=== PATIENT | male | born 1975 | race Caucasian/White ===

== ENCOUNTER 2018-07-18 09:52 | Inpatient (IN) | payer SELFPAY ==
[2018-07-18] MEDS ORDERED: Ondansetron PF 4 MG/2 ML Vial ONE (10:26)
[2018-07-18] MEDS ORDERED: Fentanyl 100 MCG/2 ML VIAL ONE ×2 (10:47→12:32)
--- NOTE | 2018-07-18 12:34 | PDOC.FPRHP ---
- History of Present Illness Chief Complaint: choking History of Present Illness: Pt presents to ED complaining of chest pain since yesterday evening At around 1800 on 07/17 Mr. De Leon was enjoying steak when he took a bite that was too large for him to swallow, he reports feeling that it was stuck in his upper esophagus. He attempted to drink water to resolve the issue with no success. He went to lay down on the cough and try to sleep at approximately 0400 on 07/18 he awoke to choking on his saliva, he drank more water, felt searing pain and the globus sensation move further down his esophagus, he then vomited blood and afterward went to the ED. He reports he has been having progressive dysphagia for solids over the past 2-3 years without a formal evaluation. He denies any fever/chills, weight loss, previous bloody emesis. ED Course: fentanyl, zofran troponin, EKG, CT chest, CBC/CMP - History PMHx: GERD PSHx: none FHx: none Social: No tobacco, 36oz of beer/daily, no drugs - Review of Systems General: denies: fever/chills, weight/appetite/sleep changes Eyes: denies: vision changes ENT: denies: nasal congestion, rhinorrhea Respiratory: reports: cough. denies: congestion, shortness of breath Cardiovascular: denies: chest pain, palpitation, edema Gastrointestinal: reports: nausea, vomiting, abdominal pain. denies: diarrhea, constipation, GI bleeding Genitourinary: denies: incontinence Skin: denies: rashes Musculoskeletal: denies: pain, tenderness Neurological: denies: numbness, syncope - Vital signs BP: 136/78 HR: 95 RR: 18 Tmax: 98.6 Pox: 98% on RA Wt: 77.1kg - Physical Exam Constitutional: other (episodes of pain with inability to speak or breath intermittently) HEENT: normocephalic and atraumatic, grossly normal vision, grossly normal hearing, MMM Neck: supple, trachea midline Chest: no-tender to palpation, no lesions Heart: RRR, normal S1/S2 Lungs: CTAB, no respiratory distress Abdomen: bowel sounds present, other (mildly tender to palpation, mild guarding) Musculoskeletal: normal structure, normal tone Neurological: no focal deficit Skin: no rash/lesions, good turgor Heme/Lymphatic: no unusual bruising or bleeding Psychiatric: normal mood and affect FMR H&P: Results - Labs Result Diagrams: 07/18/18 19:07 FMR H&P: A/P - Problem List (1) Boerhaave syndrome Status: Acute Code(s): K22.3 - PERFORATION OF ESOPHAGUS (2) GERD (gastroesophageal reflux disease) Status: Acute Code(s): K21.9 - GASTRO-ESOPHAGEAL REFLUX DISEASE WITHOUT ESOPHAGITIS - Plan Boerhaave syndrome -Possibly resolved, concern for esophageal leak, sequale of forced esophageal rupture -CT w/ oral contrast negative for perforation -GI consulted, appreciate recs -NPO, LR 100ml/hr -IV protonix 40mg q12hr, zosyn, morphine prn -Monitor vitals q4hr, daily CBC, CMP -Consider EGD GERD -Possible history of, untreated -Continue PPI on DC -Esophageal narrowing noted, consider further workup outpatient Ppx: [facility] Code: full Disposition/LOS: Admit to surgical floor, monitor vitals and white blood cell count closely FMR H&P: Upper Level - Pertinent history 43M presents for 1 day of "choking on steak". He states he had 2-3 years of solid dysphagia with food. Yesterday, he had an episode after having steak. He tried to relieve it with fluid, but had also developed new dysphagia to liquid. Associated with pain underneath sternum, intermittent, non radiating, pressure like pain and bloody emesis. The pain has not resolved overnight so this morning , he called EMS. At [facility] ER, he was seen by GI. CT scan done here did not show perforation. GI is concern that there may be an unseen tear and would like to admit him for further evaluation and work up. So far, he has received 2 mg ativan, 1 mg glucagon, 50 mcg fentaenyl, 4 mg zofran, 2 mg morphine, 40 mg protonix and 2 mg dilaudid by EMS/ER. PMH: Rt "sciatic pain" Medication: 20 mg Prednisone for sciatic pain flare Social: 3 beers a day ROS: Gen: Deny fever GI: Endorse 1x bloody emesis, dysphagia with water/food, substernal pain after steak. MSK: Right leg sciatic pain - Pertinent findings Vitals: BP 136/78, Pulse 95, Resp 18, 98% O2 on RA, Wt 77kg Gen: Alert, grossly oriented, occasionally in distress secondary to pain HEENT: Eye conjunctiva white, moist mucosal membrane, midline trachea CV: RRR with no apparent m/g/r Resp: CTA bilaterally Abd: Soft, not tender to palpation, no guarding or rigidity. Mildly hypoactive bowel sound Ext: No edema Psych: appropriate interaction Nuero: No obvious focal deficits Trop: Less then 0.01 Hgb 13.3, WBC 9, Plt 161 - Plan Date/Time: 07/18/18 1230 I, [J Luis Ly], have evaluated this patient and agree with findings/plan as outlined by international project manager resident. Pertinent changes/additions are listed here. 1. Concern for Boerhaave syndrome and sequelae - GI recs for broad spectrum antibiotic and protonix due to concern for Boerhaave and sequelae. - CT scan at this time shows no active rupture based on preliminary read - CBC does not indicate significant bleed if any at this moment and patient with no known active bleed - Plan, admit for obs, start on q 6-8 hrs zosyn and 40 protonix BID, keep patient NPO - Appreciate GI recs and will follow up with it. 2. Rt sciatic nerve pain - Chronic issue prior to admission, not currently an active issue. - Will reevaluate and treat as needed. Addendum - Attending - Attending Attestation Date/Time: 07/19/181957 I personally evaluated the patient and discussed the management with Dr. Desai I agree with the History, Examination, Assessment and Plan documented above with any addition or exceptions noted below.Consider transfer to higher level of care.
[2018-07-18] MEDS ORDERED: Iopamidol 370 76% 50 ML VIAL FS ONE (12:48)
[2018-07-18 13:41] LABS: #Eosinphils 0.1 thou/uL (0.0-0.7); #Monocytes 0.5 thou/uL (0.11-0.59); #Neutrophils 7.4 thou/uL (1.40-6.50); %Eosinophils 0.9 % (0.0-10.0); %Lymphocytes 11.5 % (21.0-51.0); %Monocytes 5.5 % (0.0-10.0); %Neutrophils 82.2 % (42.0-75.0); Hemoglobin 13.3 g/dL (14.0-18.0); Mean Corpuscular Hemoglobin 29.7 pg (27.0-31.0); Mean Corpuscular Volume 87.2 fL (78.0-98.0); Mean Platelet Volume 7.3 fL (7.4-10.4); Platelet Count 161 thou/uL (130-400); RBC Distribution Width 11.6 % (11.5-14.5); Red Blood Cell (RBC) Count 4.48 mill/uL (4.70-6.10)
--- NOTE | 2018-07-18 14:00 | CT ---
CT THORAX NONCONTRAST: DATE: 07-18-18 TIME: 1:14 p.m. HISTORY: 43-year-old male with severe chest pain and epigastric pain after food bolus obstruction in the lower esophagus. COMPARISON: 07-18-18 7:[address] TECHNIQUE: Patient swallowed iodinated contrast. No IV contrast was given. FINDINGS: There is enteric contrast material in the nondistended lumen of the esophagus. The esophagus has circ umferential diffuse mural thickening throughout its length. There is no evidence of extravasation of the enteric contrast material into the mediastinum. There is a small fluid collection abutting the ri ght side of the esophagus at the lower chest. This has not changed. There is a small amount of fluid to the left of the esophagus at the same imaged level. There are mildly mediastinal lymph nodes in th e pretracheal region. No pneumomediastinum or pneumothorax. Interval development of streaky pulmonary densities in the bilateral lower lobes, left greater than right. At least some of this, including al l of it on the right, represents subsegmental atelectasis. The ones on the left are slightly more con fluent, and therefore follow up is recommended to rule out aspiration. Trachea and major bronchi are patent and clear. There is a tiny new left pleural effusion. IMPRESSION: 1. No extravasation of contrast material from the esophagus. 2. Diffuse mural thickening of the esophagus consistent with diffuse esophagitis. 3. Small amount of lower mediastinal fluid around the esophagus, unchanged from this morning, consist ent with mediastinitis. 4. Interval development of bilateral lower lobe pulmonary densities, left greater than right. Much of this represents subsegmental atelectasis, but follow up is recommended to rule out aspiration pneumo nitis in the left lower lobe. MAJO Carias POS: PRABHJOT
[2018-07-18] MEDS ORDERED: Piperacillin/Tazobactam 3.375 GM VIAL ONE (14:51)
[2018-07-18] MEDS ORDERED: Ondansetron PF 4 MG/2 ML Vial IVP PRN (15:04)
[2018-07-18] MEDS ORDERED: Lactated Ringer's 1,000 ML IV SCH (15:04)
[2018-07-18] MEDS ORDERED: Ondansetron ODT 4 MG TAB PO PRN (15:04)
--- NOTE | 2018-07-18 16:57 | CON ---
DATE OF CONSULTATION: 07/18/2018 GI CONSULTATION REASON FOR CONSULTATION: Severe chest pain after an episode of bolus obstruction. HISTORY OF PRESENT ILLNESS: Mr. De Leon is a pleasant 43-year-old gentleman, who notes that he has had intermittent problems of dysphagia for solids for about 6 or 7 years. From time to time, it will get stuck and he will either put his finger in his mouth and regurgitated up in the bathroom or drink water and force it down. He has not had any previous medical evaluation for this. Last night, he took steak around 8 o'clock, cut of little piece and tried to eat it and got stuck and felt like in the mid upper chest region and was fairly uncomfortable. He could not throw up. He awaited a few hours and tried to vomited up, but it would come up. He continued to have problems feeling secretions and ultimately he went to sleep, waking up periodically to spit up his secretions. He states about 4 in the morning, he decided to take a big drink of water and tried to force it down and it seemed to move from upper chest to the lower chest above the xiphoid and with that, he had severe excruciating pain and cried out. He also was brought to the emergency room in [place] at [facility], where he was evaluated there. He had a comprehensive metabolic profile 0450 hours in the morning, which was normal. White count of 9.18, hemoglobin of 15.1, and platelet count of 247. He had stable vital signs with no fever and normal blood pressure. Ultimately, he had a CAT scan that showed a thickened lower esophagus with fluid above it and maybe some air, but nothing below it. There are no overt signs of perforations or mediastinitis at that time. He was transferred from this facility, he is having quite a bit of pain here. He had again no evidence of fever, but had high pain requirements receiving Glucagon, Ativan, Protonix, Nitro-Bid, Dilaudid twice, morphine, and Zofran and then more recently fentanyl. When I saw him with medical student working with me, he was complaining of severe chest pain worse with deep breath. He was able to handle secretions and had any problems with that for several hours. He was able to drink some water here earlier. He denied any chills or rigors. PAST MEDICAL HISTORY: Negative. PAST SURGICAL HISTORY: Negative. ALLERGIES: NONE KNOWN. MEDICATIONS: None except he recently took a steroid taper from neurosurgeon. He was doing some work for. FAMILY HISTORY: Noncontributory. No history of colorectal cancer or liver disease. PHYSICAL EXAMINATION: VITAL SIGNS: Temperature 98.6, blood pressure 143/83, and pulse is 95. GENERAL: He is in bed. He is a little bit of distress, but his skin is warm and dry. His pain is controlled. HEENT: Oropharynx is moist. Conjunctivae and sclerae clear. NECK: Supple without any crepitus. LUNGS: Decreased breath sounds and excursion, does not take a little deep breath. Lungs are clear. HEART: Regular rate and rhythm. There is no crepitus in the chest. ABDOMEN: Mild tender in the epigastrium. There is no rebound or guarding. EXTREMITIES: No clubbing, cyanosis, or edema. SKIN: Warm and dry. LABORATORY DATA: Repeat labs here at 1331 hours; white count is 9, hemoglobin is 13.3, and platelet count is 161. Repeat CAT scan of the chest was ordered here as I was concerned about Boerhaave esophagus and mediastinitis, the amount of pain he is having with respiration and pain requirements here in the emergency room. I talked with Dr. Baltazar, reviewed those films with them. There is a contrast does go down the esophagus into the stomach. He had diffuse circumferential mural thickening and is almost the esophagus with no extravasation. There is small fluid collection abutting the right side of the esophagus and lower chest. It is unchanged from previous exam, smaller fluid in the left of the esophagus at the same image level, mild mediastinal lymph nodes in pretracheal region. No pneumomediastinum or pneumothorax. Some bilateral lower lobe pulmonary densities. Bronchi are clear. Radiologist felt he has a prior low-grade mediastinitis here. ASSESSMENT: 1. Episode of recurrent dysphagia for solids, likely related to esophageal stricture or eosinophilic esophagitis. 2. Episode of bolus obstruction with forceful vomiting and then severe chest pain suggestive of Boerhaave. There is no evidence of free esophageal perforation on CT scans both in [place] and here. The patient has had no fever and no leukocytosis. 3. The patient may have mild aspiration pneumonia. 4. I have reviewed the films with radiology personnel and talked with on-call thoracic surgery without overt leak at this point in time and without overt clinical signs of mediastinitis or expanding mediastinal fluid or effusions. There is no role for surgical intervention. If he needs surgical intervention, that is not available to the hospital after talking with Radiology, Surgery, and the [facility] Service admitting the patient. We decided to go and admit the patient here as there is not a compelling evidence for transfer him for a higher level of care without any overt signs of developing mediastinitis between observation at the outside emergency room beginning at 0420 hours this morning and here. RECOMMENDATIONS: 1. We would start on IV antibiotics empirically, cover a broad-spectrum probably supplying Zosyn to cover for anaerobes and Gram positive and negatives. 2. IV Protonix q.12 hours. 3. IV fluids. 4. Strict n.p.o. 5. Serial exams. If the patient has developed fever or sepsis, may need to be transferred to an outside facility for further evaluation if he would need thoracic surgery. Job ID: [id number]
[2018-07-18] MEDS ORDERED: Morphine 4 MG/ML VIAL ONE (16:59)
[2018-07-18] MEDS: Morphine 4 MG/ML VIAL SLOW IVP PRN ×3 (17:01→21:22)
[2018-07-18 18:05] VITALS: BMI 25.0
[2018-07-18] MEDS ORDERED: Fentanyl 100 MCG/2 ML VIAL SLOW IVP PRN (19:15)
[2018-07-18 19:18] LABS: #Lymphocytes 0.6 thou/uL (1.20-3.40); #Monocytes 0.3 thou/uL (0.11-0.59); #Neutrophils 4.8 thou/uL (1.40-6.50); %Basophils 0.1 % (0.0-1.0); %Eosinophils 0.6 % (0.0-10.0); %Lymphocytes 10.7 % (21.0-51.0); %Monocytes 5.2 % (0.0-10.0); %Neutrophils 83.5 % (42.0-75.0); Mean Corpuscular HGB CONC 33.7 g/dL (32.0-36.0); Mean Corpuscular Hemoglobin 29.5 pg (27.0-31.0); Mean Corpuscular Volume 87.5 fL (78.0-98.0); Mean Platelet Volume 7.6 fL (7.4-10.4); Platelet Count 142 thou/uL (130-400); RBC Distribution Width 11.7 % (11.5-14.5); Red Blood Cell (RBC) Count 4.39 mill/uL (4.70-6.10); White Blood Cell (WBC) Count 5.7 thou/uL (4.8-10.8)
--- NOTE | 2018-07-18 19:40 | PDOC.EVN ---
Event Note - Event Note Event Note: 43 yo male admitted with esophageal tear s/p forced po fluid in attempt clear esophageal obstruction after eating chicken fried steak . Patient with 3 years progressive dysphagia taking OTC PPI occasionally. Currently even mashed potatoes need to be followed with fluids for passage. Patient tried several hours to force food bolus down with po fluids before experiencing hematemasis. Patient presented to [facility] had CT chest and transferred to [facility] with repeat CT with oral contrast. Concern for esophageal rupture or Boerhaves and secondary mediastinitis. Patient seen with increased pain and splinting c/o morphine not effective and temp to 101 noted. Will increase antibiotic coverage and consult with CT surgery for further recommendation. No free air or esophageal penetration seen with CT with contrast .
--- NOTE | 2018-07-18 20:35 | PDOC.EVN ---
Event Note - Event Note Event Note: Visited with patient and family. Now febrile, tachycardic and remains in significant discomfort. Spoke with Dr. Zuleta who recommends transfer to facility that could manage suspected esophageal rupture and mediastinitis. Have initiated transfer to either [facility] in [place] or possibly [place]. Awaiting further approval. In the meantime, have expanded antibiotics to cover for mediastinitis + additional anaerobic coverage to include vanc + ceftazidime + zosyn. Tylenol OH PRN fever. Will continue pain control with fentanyl and morphine but if inadequate, will consult Anesthesiology for possible CONSULTANT TECHNOLOGY. Requiring NC because of inability to take deep inspirations 2/2 pain. Will plan for repeat CXR vs. CT in the morning or sooner if indicated. Discussed all of this with family who is understands and all questions answered at this time. BCx ordered.
[2018-07-18] MEDS ORDERED: Vancomycin HCl 1.25 GM in Sodium Chloride 0.9% 250 ML 250 ML IVPB SCH (21:00)
[2018-07-18] MEDS ORDERED: Piperacillin/Tazobactam 3.375 GM in Sodium Chloride 0.9% 100 ML IVPB SCH ×2 (21:00→23:59)
[2018-07-18] MEDS ORDERED: Pantoprazole 40 MG VIAL IVP SCH (21:00)
[2018-07-18] MEDS ORDERED: Cefepime 1 GM in Sodium Chloride 0.9% 100 ML IVPB SCH (22:00)
--- NOTE | 2018-07-18 22:15 | RAD ---
CHEST TWO VIEWS: INDICATIONS: Pain. FINDINGS: Bibasilar patchy densities are present, indicating pneumonia. There is granulomatous calcification o verlying the left lateral lower lung zone. No free air is seen beneath the hemidiaphragms. The card iac silhouette is borderline in size. There is vascular congestion in each perihilar region. IMPRESSION: 1. Evidence of bibasilar pneumonia/pneumonitis. Correlate clinically to exclude evidence of aspirat ion. 2. No free air is seen beneath the hemidiaphragms. 3. Vascular prominence. Correlate for fluid status. POS: [facility]
[2018-07-18 23:29] VITALS: BP 126/78; TEMP 102.8
[2018-07-18] MEDS ORDERED: Acetaminophen 650 MG Suppository PR PRN (23:44)
--- NOTE | 2018-07-19 01:09 | PDOC.EVN ---
Event Note - Event Note Event Note: Spoke with Dr. Burnett at [facility] in [place] regarding patient's condition. He agreed to accept transfer for mediastinits (and concern for possible small esophageal tear). Will plan for transfer tonight. Discussed plan with patient and his and they are agreeable. All questions answered at this time. He remains mildly tachycardic and febrile. VS otherwise stable. Will give Tylenol prior to transfer.
[2018-07-19] MEDS: Morphine 4 MG/ML VIAL SLOW IVP PRN (01:29)
--- NOTE | 2018-07-19 11:48 | DIS ---
DATE OF ADMISSION: 07/18/2018 DATE OF DISCHARGE: 07/19/2018 RESIDENT: Melissa Barnard MD. ADMITTING ATTENDING: Shahid Mason MD DISCHARGE ATTENDING: Shahid Mason MD CONSULTS: Dr. Zuleta with Gastroenterology, and Dr. Hutchison and Dr. Moreira with CT surgery were also notified of patient's condition. PROCEDURES: CT chest with and without contrast (07/18/2018): 1. No extravasation of contrast material from the esophagus. 2. Diffuse mural thickening of the esophagus consistent with diffuse esophagitis. 3. Small amount of lower mediastinal fluid around the esophagus, unchanged from this morning, consistent with mediastinitis. 4. Interval development of bilateral lower lobe pulmonary densities, left greater than right. Much of this represent subsegmental atelectasis, followup is recommended to rule out aspiration pneumonitis in the left lower lobe. Chest x-ray (07/18/2018): 1. Evidence of bibasilar pneumonia/pneumonitis, correlate clinically to exclude evidence of aspiration. No free air is seen beneath the hemidiaphragms. 2. Vascular prominence, correlate for fluid status. This x-ray was discussed with Dr. Sesay who also noted that there did not appear any evidence of pneumomediastinum. PRIMARY DIAGNOSES: 1. Mediastinitis. 2. Aspiration pneumonitis. 3. Gastroesophageal reflux disease. 4. Concern for small esophageal perforation. SECONDARY DIAGNOSES: 1. Gastroesophageal reflux disease. 2. Progressive dysphagia. DISCHARGE MEDICATIONS: 1. Tylenol 650 mg p.r. q.4 hours p.r.n. fever. 2. Duo nebs 3 mL nebulizer q.4 hours scheduled. 3. Cefepime 1 g q.8 hours. 4. Fentanyl 50 mcg IVP q.2 hours p.r.n. severe pain. 5. LR at 100 mL/h. 6. Morphine 4 mg q.4 p.r.n. severe pain. 7. Zofran 4 mg p.o. q.6 hours p.r.n. 8. Protonix 40 mg IV q.12 hours. 9. Zosyn 3.375 g q.6 hours. 10. Vancomycin 1.25 g q.12 hours. DISCONTINUED MEDICATIONS: None. HISTORY OF PRESENT ILLNESS/HOSPITAL COURSE: Mr. De Leon presented to the ED with chief complaint of chest pain. He had difficulty swallowing by a steak the evening prior to admission and throughout the evening continued to feel that it was stuck in his esophagus. He tried to pass a bolus with water with no improvement and was unable to sleep, prompting him to come to the ED early in the morning of July 18. While in the ED, a CT was performed, which showed evidence of the bolus had passed and no extravasation of contrast as noted above in the reading. However, the patient was continued to have severe pain and Dr. Zuleta of Gastroenterology was consulted. He remained concerned that the patient may have a small tear in his esophagus and recommended transfer of care to a facility that would be able to manage due to complication. This was also discussed with Dr. Hutchison, who recommended transfer as well. The patient also began to have a fever and therefore antibiotic coverage was broadened as well as blood cultures obtained. Dr. Burnett at [facility] in [place] agreed to accept transfer of the patient to his cardiothoracic service. At this time, we are preparing to transfer patient tonight. DISPOSITION: Guarded. DISCHARGE INSTRUCTIONS: Per Primary Team at receiving hospital. Job ID: [id number]
--- NOTE | 2018-07-20 10:14 | DIS ---
DATE OF ADMISSION: 07/18/2018 DATE OF DISCHARGE: 07/19/2018 RESIDENT: Fernandez Desai DO ADMITTING ATTENDING: Teresita Ashraf MD DISCHARGE ATTENDING: Dr. Mason. CONSULT: Dr. Zuleta, Gastroenterology. PROCEDURES: None. IMAGIN. Chest CT significant for no extravasation of contrast material from the esophagus. 2. Diffuse mural thickening of the esophagus consistent with diffuse esophagitis. 3. Small amount of lower mediastinal fluid around the esophagus unchanged from this morning, consistent with mediastinitis. 4. Interval development of bilateral lower lobe pulmonary densities, left greater than right. Much of this represents segmental atelectasis. Followup is recommended to rule out aspiration pneumonitis in the left lower lobe. PRIMARY DIAGNOSIS: Boerhaave syndrome. SECONDARY DIAGNOSIS: Gastroesophageal reflux disease. HISTORY OF PRESENT ILLNESS/HOSPITAL COURSE: Mr. De Leon is a 43-year-old male, who presents to the ED complaining of chest pain since yesterday evening at around 1800 hours. That evening, he was enjoying a steak, took a large bite and was unable to swallow. Following that, he reports globus sensation in his esophagus, attempting to drink large amount of water to gulp it down, and had tearing type sensation with subsequent hematemesis and malaise. At that time, they drove to the ER, presented to [facility] ED and was transferred to higher level of care at [facility] ED. He reports that for 2 to 3 years, he has had progressive dysphagia for solids. He denies any fever, chills, weight loss, or previous hematemesis. In the emergency department, he was given smooth muscle relaxer medications and pain medicine. Troponin, EKG, CBC and CMP were within normal limits. It was determined unlikely that he had a patent esophageal tear at that time and CT was negative for p.o. contrast leaking outside of the esophagus, so he was admitted to the surgical floor. Dr. Zuleta was consulted and agreed. Approximately, 6 hours post admission, he developed fever and tachycardia. Dr. Zuleta was contacted and recommended transfer to a higher level of care. [facility] in [place] was contacted, and Dr. Burnett , the accepting physician, agreed to accept the transfer for mediastinitis and concern for possible small esophageal tear. The patient was transported successfully. DISPOSITION: Guarded. TRANSFER INSTRUCTIONS: 1. Location: [facility] in [place]. 2. Diet: N.p.o. 3. Activity: As instructed. 4. Followup: Follow up with primary team attending, Dr. Burnett upon arrival. Job ID: [id number] MTDD
== END 2018-07-19 01:37 | disposition short-term general hospital (02) | DRG 368 ==
LOC: ERS 09:52 → OBSVTOIN 12:50 → ERHOLD 12:50 → T4-A 17:13 → IMCU/EMU 23:07
PROVIDERS: ADMIT Family Medicine; ATTEND Family Medicine
DX: K22.3 Perforation of esophagus (principal); J98.51 Mediastinitis; J69.0 Pneumonitis due to inhalation of food and vomit; K21.9 Gastro-esophageal reflux disease without esophagitis; R13.10 Dysphagia, unspecified
CPT/HCPCS: 36415; 71046; 71250; 84484; 85025; 87040; 93005; 96361; 96365; 96375; 96376; C9113; J0692; J2270; J2405; J2543; J3010; J3370; J7050; Q9967

== ENCOUNTER 2019-12-13 09:55 | Outpatient (CLI) | payer OTHER ==
--- NOTE | 2019-12-13 12:52 | CT ---
CT NECK WITH CONTRAST: DATE: 12/13/2019. HISTORY: A 44-year-old male with right tonsillar enlargement and right neck palpable lump. Dr. 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 Pierre's nurse, Loreto Osei LVN, by telephone, at 11:28 a.m., on 12/13/2019. COMPARISON: None. FINDINGS: The right faucial tonsil is enlarged. There are multiple significant enlarged right level II lymph nodes. One of the larger ones is approx imately 2.5 x 2.5 x 3 cm. None of these are necrotic. A couple of the right cervical lymph nodes patt rder on level III territory. There are multiple mildly and moderately enlarged lymph nodes in the subcarinal, pretracheal, and rig ht paratracheal mediastinum. There are at least mildly enlarged noncalcified bilateral hilar lymph n odes, incompletely imaged. Diffusely prominent interstitial markings at lung apices. No thyromegaly. Normal larynx. Parotid, carotid, retropharyngeal, submandibular, parts expediter, and posterior cervical, spaces, are unr emarkable. No destructive osseous lesion. IMPRESSION: 1. 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 2. Nonspecific mediastinal and hilar lymphadenopathy. This could represent sarcoidosis. Other, les s likely possibilities include lymphoma and metastatic lymphadenopathy. Clinical correlation is marcus mmended. CODE CR POS: [facility]
== END 2019-12-13 09:56 | disposition home or self-care (01) ==
LOC: SCSCT 09:55
PROVIDERS: ATTEND Specialist
DX: R22.1 Localized swelling, mass and lump, neck (principal); J35.8 Other chronic diseases of tonsils and adenoids; R59.0 Localized enlarged lymph nodes; C09.9 Malignant neoplasm of tonsil, unspecified
CPT/HCPCS: 70491

== ENCOUNTER 2019-12-15 07:31 | Outpatient (CLI) | payer SELFPAY, OTHER ==
[2019-12-16 13:15] LABS: SARS-CoV-2 MS2 Positive; SARS-CoV-2 N Gene Negative; SARS-CoV-2 S Gene Negative; SARS-CoV-2 orf1ab Negative
== END 2019-12-15 07:32 | disposition home or self-care (01) ==
LOC: LABBT 07:31
PROVIDERS: ATTEND Otolaryngology Plastic Surgery within the Head & Neck
DX: Z01.818 Encounter for other preprocedural examination (principal); Z11.59 Encounter for screening for other viral diseases; R22.1 Localized swelling, mass and lump, neck; J35.8 Other chronic diseases of tonsils and adenoids
CPT/HCPCS: 87635; 93005; 93010; U0003

== ENCOUNTER 2019-12-20 07:36 | Day surgery (SDC) | payer OTHER ==
[2019-12-19 10:05] VITALS: BMI 25.4
[2019-12-20] MEDS ORDERED: EPINEPHrine 1 MG/ML AMP ONE (08:47)
[2019-12-20] MEDS ORDERED: AFRIN NASAL MIST 15 ML BOT ONE (08:47)
[2019-12-20] MEDS ORDERED: Ferric Subsulfate (ASTRINGYN) 8 ML VIAL ONE (08:47)
[2019-12-20] MEDS ORDERED: Acetaminophen 500 MG TAB ONE (08:54)
[2019-12-20] MEDS ORDERED: Fentanyl 250 MCG/5 ML VIAL ONE (08:58)
[2019-12-20] MEDS ORDERED: Midazolam HCl 2 mg/2 ml Vial ONE (08:58)
[2019-12-20] MEDS ORDERED: Fentanyl 100 MCG/2 ML VIAL ONE ×2 (09:57→10:24)
[2019-12-20] MEDS ORDERED: PROPOFOL 200 MG/20 ML VIAL ONE (10:11)
[2019-12-20] MEDS ORDERED: Labetalol HCl 100 MG/20 ML VIAL ONE (10:11)
[2019-12-20] MEDS ORDERED: Ondansetron PF 4 MG/2 ML Vial ONE (10:11)
[2019-12-20] MEDS ORDERED: Dexamethasone 20 MG/5 ML VIAL ONE (10:11)
[2019-12-20] MEDS ORDERED: Lidocaine 1% PF 5 ML VIAL ONE (10:11)
[2019-12-20] MEDS ORDERED: Rocuronium Bromide 10 MG/ML (10ML VIAL) ONE (10:11)
--- NOTE | 2019-12-21 00:14 | OP ---
DATE OF PROCEDURE: 12/20/2019 PREOPERATIVE DIAGNOSES: 1. 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 3. Dysphagia. POSTOPERATIVE DIAGNOSES: 1. 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 3. Dysphagia. PROCEDURES PERFORMED: 1. Microsuspension direct laryngoscopy with biopsy. 2. Tonsillectomy and adenoidectomy. ESTIMATED BLOOD LOSS: 20 mL. COMPLICATIONS: None. ANESTHESIA: GETA. DESCRIPTION OF PROCEDURE: The patient was taken to operating room and placed supine on the table. General endotracheal anesthesia was obtained by the anesthesia staff. Tube was secured in the left lower lip. A tooth guard was placed into the oral cavity and a shoulder roll was placed. The patient's head was placed in gentle extension. Following this, the Dedo laryngoscope was introduced into the oral cavity and the mucosa of the oral cavity, oropharynx, hypopharynx, and laryngeal structures were all examined. There was a necrotic hard mass present within the right tonsil and did not extend onto the base of tongue or into the nasopharynx. The piriform sinuses vallecula, postcricoid mucosa, true vocal cords and subglottic areas were all noted to be free of lesions. A biopsy was taken of this area and sent for frozen section analysis. Following this, the curved Allis clamp was used to grasp the tonsils bilaterally and a subcapsular tonsillectomy was performed bilaterally. There was a very firm solid mass approximately 3 cm in diameter present within the right tonsil. Following this, the indirect laryngeal mirror was used to visualize the adenoid pad and the adenoid pad was then removed using the suction Bovie device. Following this, the nasal cavity was irrigated. Hemostasis was controlled. The patient tolerated the procedure well. Job ID: [id number]
== END 2019-12-20 11:43 | disposition home or self-care (01) ==
LOC: SDC 07:36
PROVIDERS: ATTEND Otolaryngology Plastic Surgery within the Head & Neck
PROC: 0CTPXZZ Resection of Tonsils, External Approach (ICD-10-PCS; principal; 2019-12-20)
PROC: 0CBM8ZX Excision of Pharynx, Via Natural or Artificial Opening Endoscopic, Diagnostic (ICD-10-PCS; principal; 2019-12-20)
PROC: 0CTQXZZ Resection of Adenoids, External Approach (ICD-10-PCS; principal; 2019-12-20)
DX: C09.9 Malignant neoplasm of tonsil, unspecified (principal); C76.0 Malignant neoplasm of head, face and neck
CPT/HCPCS: 88304; 88341; 88342; J0171; J1100; J2001; J2250; J2405; J2704; J3010

== ENCOUNTER 2020-01-02 09:48 | Outpatient (CLI) | payer OTHER ==
--- NOTE | 2020-01-02 13:05 | PET ---
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 There is bilateral relatively symmetric palatine tonsillar FDG avidity with SUV max on the right of 9 .9 SUV max on the left of 9. Right cervical level II and III adenopathy is FDG avid with SUV max 12.3. No supraclavicular adenopat hy. The nasopharyngeal and base of tongue adenoids are not significantly FDG avid. Symmetric bilateral intracranial uptake. The right paratracheal and pretracheal lymph nodes are not s ignificantly FDG avid. Calcified left suprahilar and AP window as well as great vessel lymph nodes are not FDG avid. No abnormal FDG avidity within the abdomen nor pelvis. Calcified granuloma within the lingula. Mild atelectasis in the lung bases. No suspicious pulmonary n odule. No dilated loops of large or small bowel. Aortoiliac contour is normal. Impression: 1. Symmetric bilateral palatine tonsillar radiotracer uptake and asymmetric right cervical level II/I II metastatic adenopathy. Given the recent neck CT findings of asymmetric right tonsillar enhancement and enlargement suggestive of cancer, left palatine tonsillar hyperplasia is suspected. B ilateral tonsillar cancer is felt less likely. Correlation with recent direct visualization findings is recommended. 2. Evidence of prior granulomatous disease with both calcified and noncalcified mediastinal lymph nod es. 3. No evidence metastatic disease distant of the cervical lymph nodes.
== END 2020-01-02 09:49 | disposition home or self-care (01) ==
LOC: PET 09:48
PROVIDERS: ATTEND Internal Medicine Hematology & Oncology
DX: C09.9 Malignant neoplasm of tonsil, unspecified (principal); R59.0 Localized enlarged lymph nodes; D71 Functional disorders of polymorphonuclear neutrophils
CPT/HCPCS: 78815; A9552

== ENCOUNTER 2020-03-12 07:21 | Outpatient (CLI) | payer OTHER ==
[2020-03-12 16:14] LABS: #Eosinphils 0.1 thou/uL (0.0-0.7); #Lymphocytes 0.3 thou/uL (1.20-3.40); #Monocytes 0.4 thou/uL (0.11-0.59); #Neutrophils 2.6 thou/uL (1.40-6.50); %Basophils 0.1 % (0.0-1.0); %Eosinophils 1.8 % (0.0-10.0); %Lymphocytes 8.2 % (21.0-51.0); %Monocytes 10.8 % (0.0-10.0); %Neutrophils 79.1 % (42.0-75.0); Hemoglobin 12.9 g/dL (14.0-18.0); Mean Corpuscular Hemoglobin 30.3 pg (27.0-31.0); Mean Corpuscular Volume 86.5 fL (78.0-98.0); Mean Platelet Volume 7.1 fL (7.4-10.4); Platelet Count 191 thou/uL (130-400); Red Blood Cell (RBC) Count 4.26 mill/uL (4.70-6.10); White Blood Cell (WBC) Count 3.3 thou/uL (4.8-10.8)
[2020-03-12 16:34] LABS: Anion Gap 16 mmol/L (10-20); BUN (Urea Nitrogen) 20 mg/dL (8.9-20.6); Calc. Creatinine Clearance 0 mL/min (70-130); Carbon Dioxide 25 mmol/L (22-29); Chloride 102 mmol/L (98-107); Estimated GFR-MDRD Greater than 90; Glucose 119 mg/dL (70-105); Potassium 4.1 mmol/L (3.5-5.1); Sodium 139 mmol/L (136-145)
[2020-03-13 11:58] LABS: SARS-CoV-2 MS2 Positive; SARS-CoV-2 N Gene Negative; SARS-CoV-2 S Gene Negative; SARS-CoV-2 by NAA Not Detected (NotDetected); SARS-CoV-2 orf1ab Negative
== END 2020-03-12 07:22 | disposition home or self-care (01) ==
LOC: LABBT 07:21
PROVIDERS: ATTEND Specialist
DX: Z01.812 Encounter for preprocedural laboratory examination (principal); Z20.828 Contact with and (suspected) exposure to other viral communicable diseases
CPT/HCPCS: 80048; 85025; 87635; U0003

== ENCOUNTER 2020-03-13 11:16 | Day surgery (SDC) | payer OTHER ==
[2020-03-12 15:35] VITALS: BMI 23.3
[2020-03-13] MEDS ORDERED: Ketorolac Tromethamine 30 MG/ML VIAL ONE (12:53)
[2020-03-13] MEDS ORDERED: Acetaminophen 500 MG TAB ONE (12:53)
[2020-03-13] MEDS ORDERED: Midazolam HCl 2 mg/2 ml Vial ONE (13:25)
[2020-03-13] MEDS ORDERED: Fentanyl 100 MCG/2 ML VIAL ONE (13:45)
[2020-03-13] MEDS ORDERED: PROPOFOL 40 ML ONE (13:56)
--- NOTE | 2020-03-14 07:04 | OP ---
DATE OF PROCEDURE: 03/13/2020 PREOPERATIVE DIAGNOSES: Tonsillar cancer, dysphagia. POSTOPERATIVE DIAGNOSES: Tonsillar cancer, dysphagia. PROCEDURE PERFORMED: Percutaneous endoscopic gastrostomy tube. ANESTHESIA: TIVA, local 1% Xylocaine with epinephrine and 0.5% Marcaine. DESCRIPTION OF PROCEDURE: The patient was taken to the operating room, where under intravenous sedation, endoscope placed per os under direct visualization. Using air insufflation, passed out to the esophagus, into the stomach. Good indentation of left medial subcostal. Area prepared with ChloraPrep. Local anesthetic was infiltrated in the skin and subcutaneous tissue. Stab incision was made. Trocar catheter introduced percutaneously into the gastric lumen, visualized endoscopically, grasping the wire introduced with snare, placed through the endoscope. The endoscope and wire brought out through the mouth. A feeding tube lubricated and connected to the wire and pulled back down through the mouth into the stomach, fixating against the abdominal wall with a fixation device. Antibiotic ointment, sterile dressing. Tube tailored to length and the feeding device applied. The patient tolerated the procedure well. Job ID: [id number]
== END 2020-03-13 15:35 | disposition home or self-care (01) ==
LOC: SDC 11:16
PROVIDERS: ATTEND Specialist
PROC: 0DH63UZ Insertion of Feeding Device into Stomach, Percutaneous Approach (ICD-10-PCS; principal; 2020-03-13)
DX: C09.9 Malignant neoplasm of tonsil, unspecified (principal)
CPT/HCPCS: J0690; J1885; J2250; J2704; J3010

== ENCOUNTER → 2020-05-14 | Day surgery (SDC) | payer OTHER ==
[~2020-05-14] MED LIST: Iopamidol 300 61% 50 ML VIAL FS ONE; Sterile Water 10 ML VIAL FS SCH
--- NOTE | 2020-05-14 16:52 | RAD ---
Tube check gastrostomy left upper quadrant HISTORY: Abdominal pain around gastrostomy catheter. FINDINGS: Including under fluoroscopic evaluation, a small amount of Gastrografin contrast was carefu lly instilled through the upper abdomen percutaneous gastrostomy catheter. Contrast immediately flows into the stomach, without leak. The anterior wall of the stomach is pulled and tented directly under the internal margin of the anterior abdominal wall. No contrast was seen along the skin surface. With the profile view, however, the normal printed appearance of stomach wall tented towards the kenyon rostomy was not as convincing. While favored to not be the case, it is possible that the catheter and balloon have been pulled super ficial to the anterior stomach wall. CT evaluation is pending.
--- NOTE | 2020-05-14 17:22 | CT ---
CT abdomen noncontrast HISTORY: PEG tube malfunction. FINDINGS: Enteric contrast is present from recent fluoroscopic procedure. The lung bases are clear. C ontrast that has been inserted through the peg is seen within the stomach and bowel. No extraluminal contrast is evident. The balloon of the catheter, however, is centered significantly sup erficial to the anterior wall of the stomach, with thickening around it suggesting that the balloon may be within the left anterior abdominal wall musculature, with the distal tip of the catheter exten ding into the stomach. No free air or free fluid within the abdomen. The pelvis was not imaged. The spleen measures up to 15.1 cm length. Prominent degenerative changes throughout the lumbar spine, including severe bilateral foraminal sten oses at the lowest 2 levels. Gas with the appearance of disc herniations are apparent at the L3-4 and L5-S1 levels, most likely compromising the left L3 and S1 nerve roots. IMPRESSION : CT findings are concerning for dislodgment of the PEG balloon from the stomach, possibly within the a nterior abdominal wall musculature. No extra-enteric leak. Findings were discussed with Dr. Byrd. Exchange of the catheter under fluoroscopy is planned. Moderate splenomegaly. Prominent degenerative changes of the lumbar spine. Foraminal stenoses and disc herniations. Clinical correlation regarding the lowest 3 bilateral dermatomes is required.
--- NOTE | 2020-05-15 08:45 | SPC ---
Gastrostomy tube change under fluoroscopic guidance HISTORY: Malposition of gastrostomy catheter. FINDINGS: Contrast material remained within the stomach and bowel from recent fluoroscopic procedure. A 0.035 Amplatz wire was carefully placed through the gastrostomy catheter to hold position. Procedure was performed in conjunction with Dr. Byrd. Dr. Byrd removed the old catheter over the wire. A new gastrostomy feeding catheter was inserted over the wire into the stomach. Balloon inflated with 20 cc water to secure position. Small amount of contrast was injected, showing good intraluminal position of the catheter. Patient tolerated the procedure well and was dismissed in good condition. IMPRESSION : Technically successful fluoroscopic guided gastrostomy catheter exchange.
== END ==
LOC: SDC/OP 15:03 → SPEC 15:04
PROVIDERS: ATTEND Surgery
PROC: 0D20XUZ Change Feeding Device in Upper Intestinal Tract, External Approach (ICD-10-PCS; principal; 2020-05-14)
DX: K94.23 Gastrostomy malfunction (principal)
CPT/HCPCS: 43763; 74150; 76000; Q9967

== ENCOUNTER 2020-08-01 07:38 | Outpatient (CLI) | payer OTHER | END 2020-08-01 07:39 | disposition home or self-care (01) | LOC: PET 07:38 | PROVIDERS: ATTEND Radiology Radiation Oncology | DX: C09.1 Malignant neoplasm of tonsillar pillar (anterior) (posterior) (principal); R59.0 Localized enlarged lymph nodes | CPT/HCPCS: 78815; A9552 ==

== ENCOUNTER 2022-10-22 12:30 | Outpatient (CLI) | payer OTHER | END 2022-10-22 12:31 | disposition home or self-care (01) | LOC: PET 12:30 | PROVIDERS: ATTEND Internal Medicine Hematology & Oncology | DX: C10.8 Malignant neoplasm of overlapping sites of oropharynx (principal); R91.8 Other nonspecific abnormal finding of lung field | CPT/HCPCS: 78815; A9552 ==

== ENCOUNTER 2023-01-13 09:56 | Outpatient (CLI) | payer OTHER | END 2023-01-13 09:57 | disposition home or self-care (01) | LOC: PET 09:56 | PROVIDERS: ATTEND Internal Medicine Hematology & Oncology | DX: C10.8 Malignant neoplasm of overlapping sites of oropharynx (principal); R91.8 Other nonspecific abnormal finding of lung field | CPT/HCPCS: 78815; A9552 ==

== ENCOUNTER 2023-04-01 12:30 | Outpatient (CLI) | payer OTHER | END 2023-04-01 12:31 | disposition home or self-care (01) | LOC: PET 12:30 | PROVIDERS: ATTEND Internal Medicine Hematology & Oncology | DX: C10.8 Malignant neoplasm of overlapping sites of oropharynx (principal); R91.1 Solitary pulmonary nodule | CPT/HCPCS: 78815; A9552 ==

== ENCOUNTER 2023-08-03 12:34 | Outpatient (CLI) | payer OTHER ==
[~2023-08-03 12:34] MED LIST changes: -Iopamidol 300 61% 50 ML VIAL FS ONE; +Iopamidol 370 76% 100 ML VIAL ONE; -Sterile Water 10 ML VIAL FS SCH
== END 2023-08-03 12:35 | disposition home or self-care (01) ==
LOC: CT 12:34
PROVIDERS: ATTEND Internal Medicine Hematology & Oncology
DX: C10.8 Malignant neoplasm of overlapping sites of oropharynx (principal); R04.2 Hemoptysis; R91.8 Other nonspecific abnormal finding of lung field
CPT/HCPCS: 71260

== ENCOUNTER 2023-08-22 21:33 | Inpatient (IN) | payer OTHER ==
[2023-08-22] MEDS ORDERED: Acetaminophen 500 MG TAB ONE (22:47)
[2023-08-22] MEDS ORDERED: Sodium Chloride 0.9% 100 ML ONE (22:48)
[2023-08-22] MEDS ORDERED: LevoFLOXacin 750 mg/D5W 150 ml Premix Bag ONE (22:48)
[2023-08-22] MEDS ORDERED: Cefepime 2 GM VIAL ONE (22:48)
[2023-08-22 22:49] LABS: ALT (SGPT) 25 U/L (8-55); AST (SGOT) 43 U/L (5-34); Albumin 3.5 g/dL (3.5-5.0); Alkaline Phosphatase 333 U/L (40-110); Anion Gap 19 mmol/L (10-20); BUN (Urea Nitrogen) 10 mg/dL (8.9-20.6); Bilirubin, Total 0.9 mg/dL (0.2-1.2); Calc. Creatinine Clearance 0 mL/min (70-130); Calcium 8.7 mg/dL (7.8-10.44); Carbon Dioxide 19 mmol/L (22-29); Chloride 97 mmol/L (98-107); Estimated GFR 107; Glucose 90 mg/dL (70-105); Lipase 8 U/L (8-78); Magnesium 1.7 mg/dL (1.6-2.6); Protein, Total 6.5 g/dL (6.0-8.3); Sodium 131 mmol/L (136-145)
[2023-08-22 22:56] LABS: Troponin I Less than 0.010 ng/mL (< 0.028)
[2023-08-22 22:59] LABS: Influenza A by NAA Not Detected (NotDetected); Influenza B by NAA Not Detected (NotDetected); SARS-CoV-2 NAA Rapid Test Not Detected (NotDetected)
[2023-08-22 23:37] LABS: #Eosinphils 0.3 thou/uL (0.0-0.7); #Monocytes 1.1 thou/uL (0.11-0.59); %Basophils 0.3 % (0.0-1.0); %Eosinophils 2.8 % (0.0-10.0); %Lymphocytes 2.3 % (21.0-51.0); %Monocytes 8.9 % (0.0-10.0); %Neutrophils 85.1 % (42.0-75.0); Hematocrit 22.3 % (42.0-52.0); Hemoglobin 6.9 g/dL (14.0-18.0); Mean Corpuscular HGB CONC 30.9 g/dL (32.0-36.0); Mean Corpuscular Hemoglobin 23.2 pg (27.0-31.0); Mean Corpuscular Volume 74.8 fl (78.0-98.0); Mean Platelet Volume 9.2 fL (7.4-10.4); Platelet Count 361 10x3/uL (130-400); Red Blood Cell (RBC) Count 2.98 mill/uL (4.70-6.10); White Blood Cell (WBC) Count 11.7 10x3/uL (4.8-10.8)
[2023-08-23] MEDS ORDERED: Acetaminophen 650 MG Suppository PR PRN (01:48)
[2023-08-23] MEDS ORDERED: Ondansetron PF 4 MG/2 ML Vial IVP PRN (01:48)
[2023-08-23] MEDS ORDERED: Ondansetron ODT 4 MG TAB PO PRN (01:48)
[2023-08-23] MEDS ORDERED: Ipratropium/Albuterol 3 ML NEB NEB PRN (02:07)
[2023-08-23 02:19] LABS: INR-International Normal Ratio 1.4; Prothrombin Time 16.7 sec (12.0-14.7)
[2023-08-23] MEDS ORDERED: Pantoprazole 40 MG VIAL ONE (02:19)
[2023-08-23 02:20] LABS: PTT 42.6 sec (22.9-36.1)
[2023-08-23 02:30] LABS: Bacteria/HPF None Seen HPF (None Seen); Bilirubin Negative (Negative); Blood, Urine Negative (Negative); CAUTI Indications for Culture Immunosuppressed; Clarity Clear (Clear); Glucose, Urine (Dipstick) Normal (Negative); Ketone, Urine Negative (Negative); Leukocyte Negative Leu/uL (Negative); Nitrite Negative (Negative); Protein, Urine (Dipstick) Negative (Neg-Trace); RBC/HPF None Seen HPF (0-3); Specific Gravity, Urine 1.007 (1.002-1.036); Squamous Epithelial None Seen HPF (0-3); Urobilinogen Normal mg/dL (Less than 2); WBC/HPF 0-3 HPF (0-3); pH, Urine 6.5 (5.0-9.0)
[2023-08-23 02:33] LABS: Urine Culture Reflex Yes Yes
[2023-08-23 02:55] LABS: Actual Bicarbonate (HCO3v) 18.8 mEq/L (22-28); Base Excess -4.4 mEq/L (-2.0 to +3.0); Calcium, Ionized (venous) 1.05 mmol/L (1.16-1.32); Chloride (VBG) 102 mmol/L (98-106); Hematocrit-VBG 23 % (42.0-52.0); Hemoglobin (Hb) 7.8 g/dL (13.1-17.2); Potassium (VBG) 3.38 mmol/L (3.70-5.30); Sodium 132 mmol/L (133-146); pH (venous) 7.453 (7.32-7.43)
[2023-08-23 04:23] LABS: Anion Gap 14 mmol/L (10-20); BUN (Urea Nitrogen) 8 mg/dL (8.9-20.6); Calc. Creatinine Clearance 0 mL/min (70-130); Calcium 8.2 mg/dL (7.8-10.44); Carbon Dioxide 18 mmol/L (22-29); Chloride 104 mmol/L (98-107); Estimated GFR 111; Glucose 89 mg/dL (70-105); Potassium 3.4 mmol/L (3.5-5.1); Sodium 133 mmol/L (136-145)
[2023-08-23 04:31] LABS: Troponin I Less than 0.010 ng/mL (< 0.028)
[2023-08-23] MEDS ORDERED: Morphine 4 MG/ML VIAL ONE (04:38)
[2023-08-23] MEDS ORDERED: Ibuprofen 800 MG TAB ONE (04:57)
[2023-08-23] MEDS ORDERED: Electrolyte Replacement Protocol 1 EACH FS PRN (04:59)
[2023-08-23 06:00] LABS: Troponin I Less than 0.010 ng/mL (< 0.028)
[2023-08-23] MEDS: Vancomycin (BATCH) 1.25 GM in Premix 1 BAG IVPB SCH (06:28)
[2023-08-23] MEDS ORDERED: Ipratropium Bromide 2.5 ml Neb ONE (06:56)
[2023-08-23] MEDS: Ipratropium Bromide 2.5 ml Neb NEB SCH (06:58)
[2023-08-23] MEDS: Cefepime 2 GM in Sodium Chloride 0.9% 100 ML IVPB SCH (08:18)
[2023-08-23] MEDS: Magnesium 2 GM/50 ML(in water) 2 GM in Premix 1 BAG IVPB SCH (08:19)
[2023-08-23] MEDS: Vancomycin (BATCH) 1.5 GM in Premix 1 BAG IVPB SCH (08:19)
[2023-08-23] MEDS: Pantoprazole 40 MG VIAL IVP SCH (08:19)
[2023-08-23] MEDS: Lactated Ringer's 1,000 ML IV SCH (08:20)
[2023-08-23] MEDS: Potassium Chloride 20 MEQ TAB PO SCH (08:20)
[2023-08-23] MEDS ORDERED: Vancomycin (BATCH) 1.5 GM in Premix 1 BAG IVPB SCH (09:00)
[2023-08-23] MEDS: Sodium Chloride 0.9% 1,000 ML IV SCH ×2 (11:38→11:52)
[2023-08-23 12:54] LABS: #Eosinphils 0.7 thou/uL (0.0-0.7); %Basophils 0.3 % (0.0-1.0); %Eosinophils 6.5 % (0.0-10.0); %Lymphocytes 2.7 % (21.0-51.0); %Monocytes 9.5 % (0.0-10.0); Hematocrit 28.3 % (42.0-52.0); Hemoglobin 8.8 g/dL (14.0-18.0); Mean Corpuscular HGB CONC 31.1 g/dL (32.0-36.0); Mean Corpuscular Hemoglobin 23.6 pg (27.0-31.0); Mean Corpuscular Volume 75.9 fl (78.0-98.0); Mean Platelet Volume 9.5 fL (7.4-10.4); Platelet Count 431 10x3/uL (130-400); RBC Distribution Width 18.3 % (11.5-14.5); Red Blood Cell (RBC) Count 3.73 mill/uL (4.70-6.10)
[2023-08-23 13:12] LABS: Legionella Urinary Ag Negative (Negative)
[2023-08-23 14:23] LABS: Hematocrit 28.3 % (42.0-52.0)
[2023-08-23 14:36] LABS: Strep pneumo Urine Ag NEGATIVE (NEGATIVE)
[2023-08-23] MEDS: guaiFENesin/Codeine 200 mg/20 mg 10 ml Cup PO PRN (17:20)
[2023-08-23] MEDS: HYDROcodone/Acetaminophen 5/325 mg Tablet PO PRN (17:25)
[2023-08-23] MEDS: Morphine 2 MG/ML VIAL SLOW IVP PRN (17:49)
[2023-08-23] MEDS: Enoxaparin 40 MG (0.4 mL) SYRINGE SC SCH (21:08)
[2023-08-23] MEDS: guaiFENesin/Codeine 200 mg/20 mg 10 ml Cup PO SCH (21:08)
[2023-08-23] MEDS: MELATONIN 10 MG PO SCH (21:49)
[2023-08-23] MEDS: GUMMY PO SCH (21:49)
[2023-08-24] MEDS: Acetaminophen 325 MG TAB PO PRN (01:02)
[2023-08-24 05:26] LABS: #Eosinphils 0.7 thou/uL (0.0-0.7); #Monocytes 1.1 thou/uL (0.11-0.59); %Basophils 0.4 % (0.0-1.0); %Eosinophils 6.3 % (0.0-10.0); %Lymphocytes 2.9 % (21.0-51.0); %Monocytes 9.4 % (0.0-10.0); %Neutrophils 80.5 % (42.0-75.0); Hematocrit 26.8 % (42.0-52.0); Hemoglobin 8.5 g/dL (14.0-18.0); Mean Corpuscular HGB CONC 31.7 g/dL (32.0-36.0); Mean Corpuscular Hemoglobin 23.9 pg (27.0-31.0); Mean Corpuscular Volume 75.5 fl (78.0-98.0); Mean Platelet Volume 9.6 fL (7.4-10.4); Platelet Count 426 10x3/uL (130-400); RBC Distribution Width 18.5 % (11.5-14.5); Red Blood Cell (RBC) Count 3.55 mill/uL (4.70-6.10); White Blood Cell (WBC) Count 11.2 10x3/uL (4.8-10.8)
[2023-08-24 05:53] LABS: Iron 14 ug/dL (65-175); Iron Binding Capacity, Total 184 mcg/dL (261-462)
[2023-08-24 05:55] LABS: ALT (SGPT) 14 U/L (8-55); AST (SGOT) 20 U/L (5-34); Alkaline Phosphatase 211 U/L (40-110); Anion Gap 15 mmol/L (10-20); BUN (Urea Nitrogen) 8 mg/dL (8.9-20.6); Bilirubin, Total 0.6 mg/dL (0.2-1.2); Calc. Creatinine Clearance 135 mL/min (70-130); Calcium 8.5 mg/dL (7.8-10.44); Carbon Dioxide 20 mmol/L (22-29); Chloride 100 mmol/L (98-107); Estimated GFR 111; Globulin 3.2 g/dL (2.4-3.5); Glucose 99 mg/dL (70-105); Iron 13 ug/dL (65-175); Iron Binding Capacity, Total 184 mcg/dL (261-462); Potassium 3.3 mmol/L (3.5-5.1); Protein, Total 6.2 g/dL (6.0-8.3); Sodium 132 mmol/L (136-145)
[2023-08-24] MEDS: FLU VACC QS2023-24(6MOS UP)/PF 60 MCG/0.5 ML SYRINGE IM ONE (07:38)
[2023-08-24] MEDS: Potassium Chloride 20 MEQ TAB PO SCH (07:39)
[2023-08-24 09:28] VITALS: BMI 23.3
[2023-08-24] MEDS ORDERED: Iopamidol-370 76% 500 ML MDV (1 ML CHARGE) ONE (10:24)
[2023-08-24] MEDS: Pregabalin 75 MG CAP PO SCH ×2 (10:25→20:44)
[2023-08-25 04:37] LABS: #Eosinphils 0.7 thou/uL (0.0-0.7); #Monocytes 0.9 thou/uL (0.11-0.59); #Neutrophils 7.1 thou/uL (1.40-6.50); %Basophils 0.3 % (0.0-1.0); %Eosinophils 7.6 % (0.0-10.0); %Lymphocytes 3.8 % (21.0-51.0); %Neutrophils 77.5 % (42.0-75.0); Hematocrit 25.1 % (42.0-52.0); Hemoglobin 8.1 g/dL (14.0-18.0); Mean Corpuscular HGB CONC 32.3 g/dL (32.0-36.0); Mean Corpuscular Hemoglobin 24.5 pg (27.0-31.0); Mean Corpuscular Volume 75.8 fl (78.0-98.0); Mean Platelet Volume 9.1 fL (7.4-10.4); Platelet Count 449 10x3/uL (130-400); RBC Distribution Width 18.6 % (11.5-14.5); Red Blood Cell (RBC) Count 3.31 mill/uL (4.70-6.10); White Blood Cell (WBC) Count 9.2 10x3/uL (4.8-10.8)
[2023-08-25 04:51] LABS: Anion Gap 12 mmol/L (10-20); BUN (Urea Nitrogen) 6 mg/dL (8.9-20.6); Calc. Creatinine Clearance 152 mL/min (70-130); Calcium 8.7 mg/dL (7.8-10.44); Carbon Dioxide 24 mmol/L (22-29); Chloride 101 mmol/L (98-107); Estimated GFR 115; Glucose 83 mg/dL (70-105); Potassium 3.5 mmol/L (3.5-5.1); Sodium 133 mmol/L (136-145)
[2023-08-25] MEDS: Potassium Chloride 20 MEQ TAB PO SCH ×2 (08:30→09:16)
[2023-08-25] MEDS: Potassium Chloride 20 MEQ in Premix 1 BAG IVPB SCH (09:07)
[2023-08-26 05:24] LABS: #Eosinphils 0.9 thou/uL (0.0-0.7); #Neutrophils 7.2 thou/uL (1.40-6.50); %Basophils 0.3 % (0.0-1.0); %Lymphocytes 3.5 % (21.0-51.0); %Monocytes 10.1 % (0.0-10.0); %Neutrophils 76.4 % (42.0-75.0); Hematocrit 27.8 % (42.0-52.0); Hemoglobin 8.8 g/dL (14.0-18.0); Mean Corpuscular HGB CONC 31.7 g/dL (32.0-36.0); Mean Corpuscular Hemoglobin 24.2 pg (27.0-31.0); Mean Corpuscular Volume 76.6 fl (78.0-98.0); Mean Platelet Volume 9.2 fL (7.4-10.4); Platelet Count 459 10x3/uL (130-400); RBC Distribution Width 18.9 % (11.5-14.5); Red Blood Cell (RBC) Count 3.63 mill/uL (4.70-6.10); White Blood Cell (WBC) Count 9.4 10x3/uL (4.8-10.8)
[2023-08-26 05:33] LABS: Anion Gap 15 mmol/L (10-20); BUN (Urea Nitrogen) 7 mg/dL (8.9-20.6); Calc. Creatinine Clearance 151 mL/min (70-130); Calcium 8.7 mg/dL (7.8-10.44); Carbon Dioxide 23 mmol/L (22-29); Chloride 100 mmol/L (98-107); Estimated GFR 115; Glucose 79 mg/dL (70-105); Potassium 3.8 mmol/L (3.5-5.1); Sodium 134 mmol/L (136-145)
[2023-08-27 04:50] LABS: #Eosinphils 0.8 thou/uL (0.0-0.7); #Monocytes 0.9 thou/uL (0.11-0.59); #Neutrophils 5.4 thou/uL (1.40-6.50); %Basophils 0.5 % (0.0-1.0); %Eosinophils 10.5 % (0.0-10.0); %Lymphocytes 4.5 % (21.0-51.0); %Monocytes 12.2 % (0.0-10.0); %Neutrophils 71.1 % (42.0-75.0); Hematocrit 27.7 % (42.0-52.0); Hemoglobin 8.7 g/dL (14.0-18.0); Mean Corpuscular HGB CONC 31.4 g/dL (32.0-36.0); Mean Corpuscular Hemoglobin 24.2 pg (27.0-31.0); Mean Corpuscular Volume 77.2 fl (78.0-98.0); Mean Platelet Volume 8.8 fL (7.4-10.4); Platelet Count 476 10x3/uL (130-400); RBC Distribution Width 18.9 % (11.5-14.5); Red Blood Cell (RBC) Count 3.59 mill/uL (4.70-6.10); White Blood Cell (WBC) Count 7.6 10x3/uL (4.8-10.8)
[2023-08-27 05:26] LABS: Anion Gap 15 mmol/L (10-20); BUN (Urea Nitrogen) 8 mg/dL (8.9-20.6); Calc. Creatinine Clearance 135 mL/min (70-130); Calcium 9.3 mg/dL (7.8-10.44); Carbon Dioxide 25 mmol/L (22-29); Chloride 100 mmol/L (98-107); Estimated GFR 111; Glucose 85 mg/dL (70-105); Potassium 4.1 mmol/L (3.5-5.1); Sodium 136 mmol/L (136-145)
[2023-08-27] MEDS: Levothyroxine 150 MCG TAB PO SCH (05:40)
[2023-08-29 05:14] LABS: #Basophils 0.1 thou/uL (0.0-0.2); #Eosinphils 0.9 thou/uL (0.0-0.7); #Monocytes 0.8 thou/uL (0.11-0.59); #Neutrophils 6.1 thou/uL (1.40-6.50); %Basophils 0.6 % (0.0-1.0); %Eosinophils 10.8 % (0.0-10.0); %Lymphocytes 5.5 % (21.0-51.0); %Monocytes 9.3 % (0.0-10.0); %Neutrophils 72.7 % (42.0-75.0); Hemoglobin 9.2 g/dL (14.0-18.0); Mean Corpuscular HGB CONC 31.7 g/dL (32.0-36.0); Mean Corpuscular Hemoglobin 24.3 pg (27.0-31.0); Mean Corpuscular Volume 76.7 fl (78.0-98.0); Mean Platelet Volume 8.9 fL (7.4-10.4); Platelet Count 480 10x3/uL (130-400); RBC Distribution Width 18.8 % (11.5-14.5); Red Blood Cell (RBC) Count 3.78 mill/uL (4.70-6.10); White Blood Cell (WBC) Count 8.3 10x3/uL (4.8-10.8)
[2023-08-29 05:32] LABS: Anion Gap 15 mmol/L (10-20); BUN (Urea Nitrogen) 11 mg/dL (8.9-20.6); Calc. Creatinine Clearance 131 mL/min (70-130); Calcium 9.3 mg/dL (7.8-10.44); Carbon Dioxide 23 mmol/L (22-29); Chloride 100 mmol/L (98-107); Estimated GFR 110; Glucose 90 mg/dL (70-105); Sodium 134 mmol/L (136-145)
[2023-08-29 12:44] VITALS: BP 111/77; TEMP 98.6
== END 2023-08-29 12:46 | disposition home or self-care (01) | DRG 871 ==
LOC: ERS 21:33 → ERHOLD 08-23 01:48 → CCU 08-23 08:00 → T4-A 08-26 13:18
PROVIDERS: ADMIT Student in an Organized Health Care Education/Training Program; ATTEND Internal Medicine
PROC: 30233N1 Transfusion of Nonautologous Red Blood Cells into Peripheral Vein, Percutaneous Approach (ICD-10-PCS; principal; 2023-08-23)
PROC: 3E03329 Introduction of Other Anti-infective into Peripheral Vein, Percutaneous Approach (ICD-10-PCS; 2023-08-23)
DX: A41.9 Sepsis, unspecified organism (principal); J18.9 Pneumonia, unspecified organism; J96.01 Acute respiratory failure with hypoxia; J90 Pleural effusion, not elsewhere classified; C78.02 Secondary malignant neoplasm of left lung; C78.01 Secondary malignant neoplasm of right lung; C76.0 Malignant neoplasm of head, face and neck; D63.0 Anemia in neoplastic disease; E03.9 Hypothyroidism, unspecified; Z90.89 Acquired absence of other organs; Z98.890 Other specified postprocedural states; Z92.21 Personal history of antineoplastic chemotherapy; Z92.3 Personal history of irradiation; R65.20 Severe sepsis without septic shock; D64.81 Anemia due to antineoplastic chemotherapy; T45.1X5A Adverse effect of antineoplastic and immunosuppressive drugs, initial encounter
CPT/HCPCS: 36415; 36430; 70450; 71045; 71250; 71275; 77336; 80048; 80053; 81001; 82728; 82805; 83540; 83550; 83605; 83690; 83735; 84145; 84443; 84484; 85025; 85610; 85730; 86850; 86900; 86901; 87040; 87081; 87086; 87449; 87899; 90471; 90686; 93005; 94640; 96365; 96366; 96367; 96368; 96375; C9113; G0008; J0692; J1642; J1650; J1956; J2270; J2272; J3370; J3475; J3480; J3490; J7050; J7120; P9016; Q9967

== ENCOUNTER 2023-11-13 13:33 | Inpatient (IN) | payer OTHER ==
[2023-11-13 14:17] LABS: #Basophils Less than 0.03 10x3/uL (0.0-0.2); %Basophils 0.1 % (0.0-1.0); %Eosinophils 0.7 % (0.0-10.0); %Lymphocytes 3.6 % (21.0-51.0); %Monocytes 5.4 % (0.0-10.0); %Neutrophils 87.5 % (42.0-75.0); Hematocrit 33.1 % (42.0-52.0); Hemoglobin 10.4 g/dL (14.0-18.0); Mean Corpuscular HGB CONC 31.4 g/dL (32.0-36.0); Mean Corpuscular Hemoglobin 27.7 pg (27.0-31.0); Mean Platelet Volume 8.7 fL (7.4-10.4); Platelet Count 418 10x3/uL (130-400); RBC Distribution Width 22.8 % (11.5-14.5); Red Blood Cell (RBC) Count 3.76 mill/uL (4.70-6.10)
[2023-11-13] MEDS ORDERED: Fluorescein Opthalmic Strip ONE (14:24)
[2023-11-13] MEDS ORDERED: Proparacaine 0.5% Opth 15 ML BOT ONE (14:25)
[2023-11-13] MEDS ORDERED: Ondansetron PF 4 MG/2 ML Vial ONE (14:26)
[2023-11-13] MEDS ORDERED: HYDROmorphone 0.5 MG/0.5 ML SYRINGE ONE (14:26)
[2023-11-13] MEDS ORDERED: Iopamidol-370 76% 500 ML MDV (1 ML CHARGE) ONE (14:31)
[2023-11-13 14:45] LABS: ALT (SGPT) 67 U/L (8-55); AST (SGOT) 36 U/L (5-34); Albumin 2.8 g/dL (3.5-5.0); Alkaline Phosphatase 135 U/L (40-110); Anion Gap 13 mmol/L (10-20); BUN (Urea Nitrogen) 18 mg/dL (8.9-20.6); Bilirubin, Total 0.2 mg/dL (0.2-1.2); Calc. Creatinine Clearance 0 mL/min (70-130); Calcium 8.9 mg/dL (7.8-10.44); Carbon Dioxide 26 mmol/L (22-29); Chloride 103 mmol/L (98-107); Estimated GFR 109; Globulin 3.8 g/dL (2.4-3.5); Glucose 139 mg/dL (70-105); Potassium 3.3 mmol/L (3.5-5.1); Protein, Total 6.6 g/dL (6.0-8.3); Sodium 139 mmol/L (136-145)
[2023-11-13] MEDS ORDERED: cefTRIAXone (ROCEPHIN) 2 GM VIAL ONE (15:28)
[2023-11-13] MEDS ORDERED: Potassium Bicarbonate/Cit Ac 20 MEQ TAB ONE (15:28)
[2023-11-13] MEDS ORDERED: Sodium Chloride 0.9% 100 ML ONE (15:28)
[2023-11-13] MEDS ORDERED: Azithromycin 500 MG VIAL ONE (16:22)
[2023-11-13] MEDS ORDERED: Acetaminophen 325 MG TAB PO PRN (17:29)
[2023-11-13] MEDS ORDERED: guaiFENesin/Codeine 200 mg/20 mg 10 ml Cup PO PRN (17:33)
[2023-11-13] MEDS ORDERED: ACETAMINOPHEN PO PRN (17:34)
[2023-11-13] MEDS ORDERED: HYDROCODONE PO PRN (17:34)
[2023-11-13] MEDS ORDERED: Ipratropium/Albuterol 3 ML NEB NEB PRN (17:57)
[2023-11-13] MEDS: HYDROcodone/Acetaminophen 5/325 mg Tablet PO PRN (18:03)
[2023-11-13 18:10] VITALS: BMI 21.8
[2023-11-13] MEDS: HYDROmorphone 0.5 MG/0.5 ML SYRINGE SLOW IVP PRN (18:32)
[2023-11-13] MEDS: Benzonatate 100 MG CAP PO SCH (19:53)
[2023-11-13] MEDS: Pregabalin 75 MG CAP PO SCH (19:53)
[2023-11-13] MEDS: Heparin 5,000 UNITS/ML VIAL SC SCH (19:53)
[2023-11-13] MEDS: guaiFENesin ER 600 MG TAB PO SCH (19:53)
[2023-11-13] MEDS: Cefepime 2 GM in Sodium Chloride 0.9% 100 ML IVPB SCH (19:54)
[2023-11-13] MEDS: Acyclovir Sodium 780 MG in Sodium Chloride 0.9% 250 ML 250 ML IVPB SCH (19:55)
[2023-11-13] MEDS: Morphine 2 MG/ML VIAL SLOW IVP SCH (20:52)
[2023-11-13] MEDS ORDERED: Cefepime 1 GM in Sodium Chloride 0.9% 100 ML IVPB SCH (21:00)
[2023-11-14] MEDS: Morphine 4 MG/ML VIAL SLOW IVP PRN (00:11)
[2023-11-14] MEDS: Levothyroxine 150 MCG TAB PO SCH (06:02)
[2023-11-14 06:13] LABS: #Basophils 0.04 10x3/uL (0.0-0.2); %Basophils 0.3 % (0.0-1.0); %Eosinophils 0.6 % (0.0-10.0); %Lymphocytes 4.4 % (21.0-51.0); %Monocytes 6.2 % (0.0-10.0); %Neutrophils 85.9 % (42.0-75.0); Hematocrit 31.2 % (42.0-52.0); Hemoglobin 9.7 g/dL (14.0-18.0); Mean Corpuscular HGB CONC 31.1 g/dL (32.0-36.0); Mean Corpuscular Hemoglobin 26.5 pg (27.0-31.0); Mean Corpuscular Volume 85.2 fL (78.0-98.0); Mean Platelet Volume 8.8 fL (7.4-10.4); Platelet Count 411 10x3/uL (130-400); RBC Distribution Width 22.6 % (11.5-14.5); Red Blood Cell (RBC) Count 3.66 mill/uL (4.70-6.10)
[2023-11-14 06:27] LABS: Anion Gap 13 mmol/L (10-20); BUN (Urea Nitrogen) 14 mg/dL (8.9-20.6); Calc. Creatinine Clearance 130 mL/min (70-130); Calcium 9.1 mg/dL (7.8-10.44); Carbon Dioxide 27 mmol/L (22-29); Chloride 101 mmol/L (98-107); Estimated GFR 112; Glucose 78 mg/dL (70-105); Sodium 137 mmol/L (136-145)
[2023-11-14] MEDS: Senokot S 8.6-50 MG TAB PO SCH (08:05)
[2023-11-14] MEDS: Pantoprazole DR 40 MG TAB PO SCH (08:05)
[2023-11-14] MEDS ORDERED: hydrALAZINE 20 MG/ML VIAL SLOW IVP PRN (08:22)
[2023-11-14] MEDS: Morphine 2 MG/ML VIAL SLOW IVP SCH (15:06)
[2023-11-14] MEDS: carBAMazepine 100 mg Chewable Tablet PO SCH ×2 (15:22→17:59)
[2023-11-14] MEDS: Sodium Chloride 0.9% 1,000 ML IV SCH (17:05)
[2023-11-14] MEDS: LevoFLOXacin 750 mg/D5W 750 MG in Premix 1 BAG IVPB SCH (20:06)
[2023-11-14] MEDS: Morphine 2 MG/ML VIAL SLOW IVP PRN (22:08)
[2023-11-15] MEDS: Morphine 4 MG/ML VIAL SLOW IVP PRN (00:09)
[2023-11-15 08:01] LABS: #Basophils 0.03 10x3/uL (0.0-0.2); %Basophils 0.2 % (0.0-1.0); %Lymphocytes 3.8 % (21.0-51.0); %Monocytes 5.8 % (0.0-10.0); %Neutrophils 85.7 % (42.0-75.0); Hematocrit 33.5 % (42.0-52.0); Hemoglobin 10.5 g/dL (14.0-18.0); Mean Corpuscular HGB CONC 31.3 g/dL (32.0-36.0); Mean Corpuscular Hemoglobin 27.4 pg (27.0-31.0); Mean Corpuscular Volume 87.5 fL (78.0-98.0); Mean Platelet Volume 8.2 fL (7.4-10.4); Platelet Count 375 10x3/uL (130-400); RBC Distribution Width 22.1 % (11.5-14.5); Red Blood Cell (RBC) Count 3.83 mill/uL (4.70-6.10)
[2023-11-15 08:17] LABS: Anion Gap 13 mmol/L (10-20); BUN (Urea Nitrogen) 13 mg/dL (8.9-20.6); Calc. Creatinine Clearance 113 mL/min (70-130); Calcium 9.2 mg/dL (7.8-10.44); Carbon Dioxide 26 mmol/L (22-29); Chloride 101 mmol/L (98-107); Estimated GFR 107; Glucose 76 mg/dL (70-105); Potassium 4.2 mmol/L (3.5-5.1); Sodium 136 mmol/L (136-145)
[2023-11-15] MEDS ORDERED: Polyethylene Glycol 3350 17 GM Packet PO PRN (13:13)
[2023-11-15] MEDS: Lidocaine 4% Patch TD SCH (14:48)
[2023-11-15] MEDS: Senokot S 8.6-50 MG TAB PO SCH (19:49)
[2023-11-15] MEDS: Saccharomyces boulardii 250 MG CAP PO SCH (19:49)
[2023-11-15] MEDS: Morphine 2 MG/ML VIAL SLOW IVP PRN (22:59)
[2023-11-16] MEDS: Transdermal Patch Removal TOP SCH (01:40)
[2023-11-16 05:35] LABS: #Basophils Less than 0.03 10x3/uL (0.0-0.2); %Basophils 0.2 % (0.0-1.0); %Lymphocytes 5.1 % (21.0-51.0); %Monocytes 7.5 % (0.0-10.0); %Neutrophils 82.4 % (42.0-75.0); Hematocrit 30.3 % (42.0-52.0); Hemoglobin 9.7 g/dL (14.0-18.0); Mean Corpuscular Hemoglobin 27.3 pg (27.0-31.0); Mean Corpuscular Volume 85.4 fL (78.0-98.0); Mean Platelet Volume 8.9 fL (7.4-10.4); Platelet Count 385 10x3/uL (130-400); RBC Distribution Width 21.6 % (11.5-14.5); Red Blood Cell (RBC) Count 3.55 mill/uL (4.70-6.10)
[2023-11-16 05:54] LABS: Anion Gap 13 mmol/L (10-20); BUN (Urea Nitrogen) 15 mg/dL (8.9-20.6); Calc. Creatinine Clearance 109 mL/min (70-130); Calcium 9.2 mg/dL (7.8-10.44); Carbon Dioxide 27 mmol/L (22-29); Chloride 102 mmol/L (98-107); Estimated GFR 106; Glucose 76 mg/dL (70-105); Potassium 3.9 mmol/L (3.5-5.1); Sodium 138 mmol/L (136-145)
[2023-11-16] MEDS: Gabapentin 300 MG CAP PO SCH (13:03)
[2023-11-16] MEDS: predniSONE 20 MG TAB PO SCH (15:12)
[2023-11-16 21:02] LABS: Legionella Urinary Ag Negative (Negative)
[2023-11-17 08:45] VITALS: BP 109/73; TEMP 97.6
[2023-11-17] MEDS: predniSONE 20 MG TAB PO SCH (09:36)
== END 2023-11-17 17:27 | disposition home or self-care (01) | DRG 871 ==
LOC: ERS 13:33 → T4-B 15:26
PROVIDERS: ADMIT Hospitalist; ATTEND Family Medicine
DX: A41.59 Other Gram-negative sepsis (principal); J18.9 Pneumonia, unspecified organism; B02.29 Other postherpetic nervous system involvement; B02.8 Zoster with other complications; J96.11 Chronic respiratory failure with hypoxia; C78.02 Secondary malignant neoplasm of left lung; C78.01 Secondary malignant neoplasm of right lung; A41.89 Other specified sepsis; D64.9 Anemia, unspecified; E03.9 Hypothyroidism, unspecified; C76.0 Malignant neoplasm of head, face and neck; A63.0 Anogenital (venereal) warts; E87.6 Hypokalemia; D63.0 Anemia in neoplastic disease; Z99.81 Dependence on supplemental oxygen; Z79.899 Other long term (current) drug therapy; Z79.1 Long term (current) use of non-steroidal anti-inflammatories (NSAID); Z79.890 Hormone replacement therapy
CPT/HCPCS: 36415; 71045; 71275; 74230; 80048; 80053; 83605; 83735; 84145; 85025; 87040; 87070; 87205; 87899; 96361; 96365; 96367; 96375; J0133; J0456; J0692; J0696; J1170; J1644; J1956; J2270; J2272; J2405; J3490; J7050; J7512; Q9967

== ENCOUNTER 2023-11-27 14:37 | Observation (INO) | payer OTHER ==
[~2023-11-27 14:37] MED LIST changes: -Iopamidol 370 76% 100 ML VIAL ONE; +Iopamidol-370 76% 500 ML MDV (1 ML CHARGE) ONE
[2023-11-27 15:25] LABS: #Basophils Less than 0.03 10x3/uL (0.0-0.2); #Eosinphils Less than 0.03 10x3/uL (0.0-0.7); %Basophils 0.1 % (0.0-1.0); %Eosinophils 0.1 % (0.0-10.0); %Lymphocytes 2.1 % (21.0-51.0); %Monocytes 3.1 % (0.0-10.0); %Neutrophils 93.4 % (42.0-75.0); Hematocrit 35.4 % (42.0-52.0); Hemoglobin 11.4 g/dL (14.0-18.0); Mean Corpuscular HGB CONC 32.2 g/dL (32.0-36.0); Mean Corpuscular Hemoglobin 27.3 pg (27.0-31.0); Mean Corpuscular Volume 84.9 fL (78.0-98.0); Mean Platelet Volume 8.8 fL (7.4-10.4); Platelet Count 495 10x3/uL (130-400); RBC Distribution Width 19.2 % (11.5-14.5); Red Blood Cell (RBC) Count 4.17 mill/uL (4.70-6.10)
[2023-11-27 15:49] LABS: ALT (SGPT) 33 U/L (8-55); AST (SGOT) 42 U/L (5-34); Albumin 2.9 g/dL (3.5-5.0); Alkaline Phosphatase 109 U/L (40-110); Anion Gap 18 mmol/L (10-20); BUN (Urea Nitrogen) 13 mg/dL (8.9-20.6); Bilirubin, Total 0.7 mg/dL (0.2-1.2); Calc. Creatinine Clearance 0 mL/min (70-130); Calcium 9.2 mg/dL (7.8-10.44); Carbon Dioxide 22 mmol/L (22-29); Chloride 96 mmol/L (98-107); Estimated GFR 98; Glucose 228 mg/dL (70-105); Potassium 3.9 mmol/L (3.5-5.1); Protein, Total 6.9 g/dL (6.0-8.3); Sodium 132 mmol/L (136-145)
[2023-11-27] MEDS ORDERED: Azithromycin 500 MG VIAL ONE (16:32)
[2023-11-27] MEDS ORDERED: Sodium Chloride 0.9% 100 ML ONE (16:32)
[2023-11-27] MEDS ORDERED: Cefepime 1 GM VIAL ONE (16:32)
[2023-11-27] MEDS ORDERED: Albuterol 2.5 MG (3 mL) NEB ONE (16:38)
[2023-11-27 16:57] LABS: Magnesium 2.1 mg/dL (1.6-2.6)
[2023-11-27 16:59] LABS: Troponin I Less than 0.010 ng/mL (< 0.028)
[2023-11-27 17:18] LABS: Actual Bicarbonate (HCO3v) 27.1 mEq/L (22-28); Base Excess 1.5 mEq/L (-2.0 to +3.0); Calcium, Ionized (venous) 1.12 mmol/L (1.16-1.32); Chloride (VBG) 97 mmol/L (98-106); Hematocrit-VBG 36 % (42.0-52.0); Hemoglobin (Hb) 12.3 g/dL (13.1-17.2); Potassium (VBG) 4.15 mmol/L (3.70-5.30); Sodium 133 mmol/L (133-146); pH (venous) 7.382 (7.32-7.43)
[2023-11-27] MEDS ORDERED: LORazepam 2 MG/ML SYR.(CARPUJECT) ONE (18:32)
[2023-11-27] MEDS ORDERED: Acetaminophen 325 MG TAB PO PRN (20:11)
[2023-11-27] MEDS ORDERED: Vancomycin 1 GM in Premix 1 BAG IVPB SCH (21:00)
[2023-11-27 23:34] VITALS: BMI 21.8
[2023-11-27] MEDS: guaiFENesin ER 600 MG TAB PO SCH (23:56)
[2023-11-27] MEDS: HYDROcodone/Acetaminophen 5/325 mg Tablet PO PRN (23:56)
[2023-11-28] MEDS: Sodium Chloride 0.9% 1,000 ML IV SCH (00:17)
[2023-11-28] MEDS: Vancomycin (BATCH) 1.75 GM in Premix 1 BAG IVPB SCH (00:34)
[2023-11-28] MEDS: Lorazepam 2 MG/ML VIAL SLOW IVP SCH (00:35)
[2023-11-28] MEDS: Cefepime 2 GM in Sodium Chloride 0.9% 100 ML IVPB SCH (04:18)
[2023-11-28 04:26] LABS: #Basophils Less than 0.03 10x3/uL (0.0-0.2); %Basophils 0.2 % (0.0-1.0); %Eosinophils 0.7 % (0.0-10.0); %Lymphocytes 3.7 % (21.0-51.0); %Monocytes 6.7 % (0.0-10.0); %Neutrophils 87.6 % (42.0-75.0); Hematocrit 31.7 % (42.0-52.0); Hemoglobin 10.2 g/dL (14.0-18.0); Mean Corpuscular HGB CONC 32.2 g/dL (32.0-36.0); Mean Corpuscular Hemoglobin 27.6 pg (27.0-31.0); Mean Corpuscular Volume 85.9 fL (78.0-98.0); Mean Platelet Volume 8.6 fL (7.4-10.4); Platelet Count 351 10x3/uL (130-400); RBC Distribution Width 18.8 % (11.5-14.5); Red Blood Cell (RBC) Count 3.69 mill/uL (4.70-6.10)
[2023-11-28 05:06] LABS: ALT (SGPT) 25 U/L (8-55); AST (SGOT) 25 U/L (5-34); Albumin 2.6 g/dL (3.5-5.0); Alkaline Phosphatase 87 U/L (40-110); Anion Gap 15 mmol/L (10-20); BUN (Urea Nitrogen) 9 mg/dL (8.9-20.6); Bilirubin, Total 0.4 mg/dL (0.2-1.2); Calc. Creatinine Clearance 123 mL/min (70-130); Calcium 8.8 mg/dL (7.8-10.44); Carbon Dioxide 21 mmol/L (22-29); Chloride 105 mmol/L (98-107); Estimated GFR 110; Globulin 3.3 g/dL (2.4-3.5); Glucose 75 mg/dL (70-105); Potassium 3.5 mmol/L (3.5-5.1); Protein, Total 5.9 g/dL (6.0-8.3); Sodium 137 mmol/L (136-145)
[2023-11-28 05:10] LABS: Vancomycin, Random 30.2 ug/mL (See Comment)
[2023-11-28] MEDS: Enoxaparin 40 MG (0.4 mL) SYRINGE SC SCH (08:12)
[2023-11-28] MEDS: Pantoprazole DR 40 MG TAB PO SCH (08:13)
[2023-11-28] MEDS: Lorazepam 2 MG/ML VIAL SLOW IVP PRN (10:50)
[2023-11-28] MEDS: Vancomycin (BATCH) 1.25 GM in Premix 1 BAG IVPB SCH (11:13)
[2023-11-28 12:05] VITALS: BP 116/79; TEMP 98.6
[2023-11-29] MEDS ORDERED: Levothyroxine Sodium 100 MCG TAB PO SCH (06:00)
== END 2023-11-28 15:41 | disposition home or self-care (01) ==
LOC: ERS 14:37 → 2SW 20:11
PROVIDERS: ADMIT Internal Medicine; ATTEND Family Medicine
PROC: B246ZZZ Ultrasonography of Right and Left Heart (ICD-10-PCS; principal; 2023-11-28)
DX: J96.01 Acute respiratory failure with hypoxia (principal); J90 Pleural effusion, not elsewhere classified; C32.9 Malignant neoplasm of larynx, unspecified; C44.42 Squamous cell carcinoma of skin of scalp and neck; R73.9 Hyperglycemia, unspecified; Z98.890 Other specified postprocedural states; Z79.899 Other long term (current) drug therapy; Z85.118 Personal history of other malignant neoplasm of bronchus and lung
CPT/HCPCS: 36415; 71045; 71275; 80053; 80202; 82805; 83605; 83615; 83735; 83880; 84145; 84484; 85025; 85379; 87040; 87081; 93005; 93306; 96365; 96367; 96372; 96375; 96376; G0378; J0456; J0692; J1650; J2060; J3370; J3490; J7050; J7611; Q9967